=== PATIENT | female | born 1975 | race Hispanic/Latino ===

== ENCOUNTER 2024-11-15 13:38 | Emergency (ER) | payer SELFPAY ==
[~2024-11-15] VITALS: Ht 149.9 cm; Wt 45.4 kg
[2024-11-15 13:45] VITALS: PULSE 63; RESP 17; TEMP 98.4; O2SAT 100
== END 2024-11-15 14:28 | disposition home or self-care (01) ==
LOC: ER 14:26
DX: R10.32 Left lower quadrant pain (principal); K59.00 Constipation, unspecified; F17.210 Nicotine dependence, cigarettes, uncomplicated
CPT/HCPCS: 99282